=== PATIENT | female | born 1950 | race Caucasian/White ===

== ENCOUNTER 2021-05-05 08:35 | Day surgery (SDC) | payer MEDICARE, MEDICAID ==
[2021-05-04 15:47] LABS: BASOPHILS % (AUTO) 0.5 % (0-1); EOSINOPHILS # (AUTO) 0.2 X10'3 (0-0.9); EOSINOPHILS % (AUTO) 2.4 % (0-6); HEMOGLOBIN 14.3 g/dl (12.0-16.0); LYMPHOCYTES # (AUTO) 2.1 X10'3 (1.1-4.8); LYMPHOCYTES % (AUTO) 24.1 % (21-51); MEAN CORPUSCULAR HEMOGLOBIN 31.9 PG (27.0-31.0); MEAN CORPUSCULAR HGB CONC 33.4 g/dL (33.0-36.5); MEAN CORPUSCULAR VOLUME 95.6 FL (78-98); MEAN PLATELET VOLUME 7.7 FL (7.4-10.4); MONOCYTES # (AUTO) 0.5 X10'3 (0-0.9); MONOCYTES % (AUTO) 5.6 % (2-12); NEUTROPHILS # (AUTO) 5.8 X10'3 (1.8-7.7); NEUTROPHILS % (AUTO) 67.4 % (42-75); PLATELET COUNT 262 X10'3 (140-440); RED BLOOD COUNT 4.49 X10'6 (4.20-5.60); RED CELL DISTRIBUTION WIDTH 13.1 % (11.5-14.5); WHITE BLOOD COUNT 8.6 X10'3 (4.5-11.0)
[2021-05-04 16:05] LABS: ALBUMIN 3.9 G/DL (3.4-5.0); ANION GAP 10 (8-16); BLOOD UREA NITROGEN 21 MG/DL (7-18); BUN/CREATININE RATIO 16.2 (6.6-38.0); CALCIUM 9.4 MG/DL (8.5-10.1); CHLORIDE 106 MMOL/L (99-107); GLUCOSE 92 MG/DL (70-104); POTASSIUM 4.4 MMOL/L (3.5-5.1); SODIUM 145 MMOL/L (135-145); TOTAL CARBON DIOXIDE 29.3 MMOL/L (24-32); eGFR 40 ML/MIN
[~2021-05-05] VITALS: Ht 157.5 cm; Wt 64.6 kg
[2021-05-05] VITALS (17 sets, daily range): BP systolic 114–166; BP diastolic 56–120
[2021-05-05] MEDS ORDERED: diphenhydrAMINE 25mg capsule PO ONE (08:55)
[2021-05-05] MEDS ORDERED: amiodarone 150mg/dext, iso-os 100 ML IV ONE (08:55)
[2021-05-05] MEDS ORDERED: morphine 10mg/ml inj. IV ONE (08:55)
[2021-05-05] MEDS ORDERED: MIDAZolam 1mg/ml 10ml vial IV ONE (08:55)
[2021-05-05] MEDS ORDERED: atropine 0.1mg/ml 10ml syringe IV ONE (08:55)
[2021-05-05] MEDS ORDERED: LORazepam 0.5 MG tablet PO ONE (08:55)
[2021-05-05] MEDS ORDERED: APIX2.5T PO (09:02)
[2021-05-05] MEDS ORDERED: METO25TA6 PO (09:02)
[2021-05-05] MEDS ORDERED: CHOL100046 PO (09:02)
[2021-05-05] MEDS ORDERED: LEVO25TA7 PO (09:02)
[2021-05-05] MEDS ORDERED: DILT-88 PO (09:02)
== END 2021-05-05 14:30 | disposition home or self-care (01) ==
LOC: SSTAY O 08:35
PROVIDERS: ATTEND Internal Medicine Cardiovascular Disease
DX: I48.19 Other persistent atrial fibrillation (principal); I08.3 Combined rheumatic disorders of mitral, aortic and tricuspid valves; I12.9 Hypertensive chronic kidney disease with stage 1 through stage 4 chronic kidney disease, or unspecified chronic kidney disease; N18.30 Chronic kidney disease, stage 3 unspecified; E03.9 Hypothyroidism, unspecified; I27.20 Pulmonary hypertension, unspecified; Z79.01 Long term (current) use of anticoagulants; Z79.899 Other long term (current) drug therapy
CPT/HCPCS: 36415; 80048; 85025; 92960; 93005; 93312; 93325; 94760; 94799; J0461; J2250; J2270